=== PATIENT | male | born 1960 | race Caucasian/White ===

== ENCOUNTER 2018-06-18 16:53 | Emergency (ER) | payer MEDICAID ==
[~2018-06-18] VITALS: Ht 167.6 cm; Wt 71.4 kg
[2018-06-18] MEDS ORDERED: TESTOSTERONE IM (17:05)
[2018-06-18] MEDS ORDERED: [UNRECOGNIZED DRUG - CODE] PO (17:05)
[2018-06-18] MEDS ORDERED: [UNRECOGNIZED DRUG - OTHER] PO (17:05)
[2018-06-18 21:11] VITALS: BP 138/81
[2018-06-18 21:14] LABS: APPEARANCE,URINE CLEAR (CLEAR); BILIRUBIN,URINE NEGATIVE (NEGATIVE); GLUCOSE, URINE (UA) NEGATIVE (NEGATIVE); KETONES,URINE TRACE mg/dL (NEGATIVE); LEUKOCYTE ESTERASE ,URINE NEGATIVE (NEGATIVE); NITRATE,URINE NEGATIVE (NEGATIVE); OCCULT BLOOD,URINE NEGATIVE (NEGATIVE); PROTEIN,URINE TRACE (NEGATIVE)
== END 2018-06-18 21:15 | disposition home or self-care (01) ==
LOC: EMS 16:56
DX: N41.9 Inflammatory disease of prostate, unspecified (principal); R59.1 Generalized enlarged lymph nodes; F15.10 Other stimulant abuse, uncomplicated; F17.210 Nicotine dependence, cigarettes, uncomplicated; F31.9 Bipolar disorder, unspecified; Z79.899 Other long term (current) drug therapy

== ENCOUNTER 2018-09-20 18:03 | Emergency (ER) | payer MEDICAID ==
[~2018-09-20] VITALS: Ht 167.6 cm; Wt 70.5 kg
[~2018-09-20 18:03] MED LIST: TESTOSTERONE IM; [UNRECOGNIZED DRUG - CODE] PO; [UNRECOGNIZED DRUG - OTHER] PO
[2018-09-20 19:51] LABS: BASOPHILS % (AUTO) 0.9 % (0.0-2.0); EOSINOPHILS % (AUTO) 0.6 % (1.0-6.0); HEMATOCRIT 37.3 % (41-53); HEMOGLOBIN 12.2 g/dL (13.5-17.5); LYMPHOCYTES # (AUTO) 2.8 K/uL (1.0-4.8); LYMPHOCYTES % (AUTO) 24.8 % (22.0-44.0); MEAN CORPUSCULAR HEMOGLOBIN 24.5 pg (26.0-34.0); MEAN CORPUSCULAR HGB CONC 32.7 G/dL (31.0-37.0); MEAN CORPUSCULAR VOLUME 75 fL (80-100); MONOCYTES # (AUTO) 1.3 K/uL (0.1-1.0); MONOCYTES % (AUTO) 11.8 % (2.0-9.0); NEUTROPHILS # (AUTO) 6.9 K/uL (1.8-7.7); NEUTROPHILS % (AUTO) 61.9 % (40.0-70.0); PLATELET COUNT (AUTO) 318 K/uL (150-450); RED BLOOD CELL COUNT(AUTO) 4.96 MIL/uL (4.50-5.90); RED CELL DISTRIBUTION WIDTH 18.3 % (11.5-14.5)
[2018-09-20 20:02] LABS: AMPHET/METH SCREEN,URINE POSITIVE (NEGATIVE); BARBITURATE SCREEN, URINE NEGATIVE (NEGATIVE); BENZODIAZEPINES SCREEN,URINE NEGATIVE (NEGATIVE); CANNABINOID SCREEN,URINE POSITIVE (NEGATIVE); COCAINE SCREEN,URINE NEGATIVE (NEGATIVE); METHADONE SCREEN, URINE NEGATIVE (NEGATIVE); OPIATE SCREEN,URINE NEGATIVE (NEGATIVE); PHENCYCLIDINE SCREEN,URINE NEGATIVE (NEGATIVE)
[2018-09-20 20:03] LABS: ANION GAP 9 mmol/L (8-16); CALCIUM, TOTAL 9.1 mg/dL (8.8-10.5); CARBON DIOXIDE 28 mmol/L (22-29); CHLORIDE 97 mmol/L (98-107); CREATININE 0.97 mg/dL (0.60-1.30); GLOMERULAR FILTR. RATE CALC > 60 mL/min (>60); GLUCOSE,RANDOM 142 mg/dL (70-110); POTASSIUM 3.6 mmol/L (3.5-5.1); SODIUM SERUM 134 mmol/L (136-145); UREA NITROGEN, BLOOD 20 mg/dL (7-18)
[2018-09-20 20:04] LABS: APPEARANCE,URINE CLOUDY (CLEAR); BILIRUBIN,URINE NEGATIVE (NEGATIVE); GLUCOSE, URINE (UA) NEGATIVE (NEGATIVE); KETONES,URINE NEGATIVE (NEGATIVE); LEUKOCYTE ESTERASE ,URINE SMALL (NEGATIVE); NITRATE,URINE NEGATIVE (NEGATIVE); OCCULT BLOOD,URINE NEGATIVE (NEGATIVE); PH,URINE 6.5 (5.0-8.0); PROTEIN,URINE NEGATIVE (NEGATIVE)
[2018-09-20 20:12] LABS: BACTERIA,URINE Few /HPF (None Seen); RBC,URINE 0-2 /HPF (0-2); SQUAMOUS EPITHELIAL CELL,UR Few /LPF (None Seen)
[2018-09-20 20:13] LABS: PLATELET MORPHOLOGY COMMENT NORMAL
[2018-09-20] MEDS ORDERED: LORazepam 1 MG TABLET PO ONE (20:15)
[2018-09-20 20:17] LABS: B-TYPE NATRIURETIC PEPTIDE 68 pg/mL (0-100)
[2018-09-20 20:29] LABS: ALANINE AMINOTRANSFERASE 85 U/L (12-78); ALBUMIN 3.8 g/dL (3.4-5.0); ALKALINE PHOSPHATASE 181 U/L (46-116); ASPARTATE AMINOTRANSFERASE 153 U/L (15-37); BILIRUBIN,TOTAL 1.2 mg/dL (0.1-1.0); CREATINE KINASE, TOTAL ONLY 2233 U/L (39-308); TOTAL PROTEIN, SERUM 8.1 g/dL (6.4-8.2)
[2018-09-20] MEDS ORDERED: TAMSULOSIN HCL 0.4 MG CAPSULE PO ONE (20:45)
[2018-09-20] MEDS ORDERED: SODIUM CHLORIDE 0.9% 1,000 ML IV ONE ×2 (20:45)
[2018-09-20 21:58] VITALS: BP 119/82
[2018-09-20] MEDS ORDERED: CefTRIAXone 1 GM/DEXTROSE 50 ML IV ONE (22:00)
== END 2018-09-20 23:01 | disposition home or self-care (01) ==
LOC: EMS 18:04
DX: N39.0 Urinary tract infection, site not specified (principal); M62.82 Rhabdomyolysis; F31.9 Bipolar disorder, unspecified; F41.9 Anxiety disorder, unspecified; F17.210 Nicotine dependence, cigarettes, uncomplicated; Z79.899 Other long term (current) drug therapy
CPT/HCPCS: 36415; 71045; 80053; 80307; 81001; 82550; 83880; 84484; 85025; 87086; 93005; 96365; 99285; J0696; J7030

== ENCOUNTER 2018-09-21 17:12 | Emergency (ER) | payer MEDICAID ==
[~2018-09-21] VITALS: Ht 162.6 cm; Wt 70.0 kg
[2018-09-21 17:44] LABS: GLUCOSE,POINT OF CARE 88 MG/DL (70-110)
[2018-09-21] MEDS ORDERED: HALOPERIDOL 5 MG TABLET PO ONE (18:00)
[2018-09-21] MEDS ORDERED: SODIUM CHLORIDE 0.9% 1,000 ML IV ONE (18:00)
[2018-09-21] MEDS ORDERED: LORazepam 2 MG/ML VIAL IVP ONE (18:00)
[2018-09-21 18:16] LABS: BASOPHILS % (AUTO) 0.8 % (0.0-2.0); EOSINOPHILS % (AUTO) 0.8 % (1.0-6.0); HEMATOCRIT 32.6 % (41-53); HEMOGLOBIN 10.8 g/dL (13.5-17.5); LYMPHOCYTES # (AUTO) 1.8 K/uL (1.0-4.8); LYMPHOCYTES % (AUTO) 21.3 % (22.0-44.0); MEAN CORPUSCULAR HEMOGLOBIN 24.6 pg (26.0-34.0); MEAN CORPUSCULAR HGB CONC 33.1 G/dL (31.0-37.0); MEAN CORPUSCULAR VOLUME 74 fL (80-100); MONOCYTES # (AUTO) 0.9 K/uL (0.1-1.0); MONOCYTES % (AUTO) 10.4 % (2.0-9.0); NEUTROPHILS # (AUTO) 5.8 K/uL (1.8-7.7); NEUTROPHILS % (AUTO) 66.7 % (40.0-70.0); PLATELET COUNT (AUTO) 265 K/uL (150-450); RED BLOOD CELL COUNT(AUTO) 4.38 MIL/uL (4.50-5.90); RED CELL DISTRIBUTION WIDTH 17.9 % (11.5-14.5)
[2018-09-21 18:53] LABS: ANION GAP 13 mmol/L (8-16); CALCIUM, TOTAL 8.6 mg/dL (8.8-10.5); CARBON DIOXIDE 22 mmol/L (22-29); CHLORIDE 103 mmol/L (98-107); CREATININE 0.89 mg/dL (0.60-1.30); GLOMERULAR FILTR. RATE CALC > 60 mL/min (>60); GLUCOSE,RANDOM 88 mg/dL (70-110); POTASSIUM 3.6 mmol/L (3.5-5.1); SODIUM SERUM 138 mmol/L (136-145); UREA NITROGEN, BLOOD 14 mg/dL (7-18)
[2018-09-21 19:19] LABS: CREATINE KINASE, TOTAL ONLY 1038 U/L (39-308)
[2018-09-22 01:05] VITALS: BP 104/71
== END 2018-09-22 01:51 | disposition home or self-care (01) ==
LOC: EMS 17:13
DX: R45.1 Restlessness and agitation (principal); R46.1 Bizarre personal appearance; F15.10 Other stimulant abuse, uncomplicated; F31.9 Bipolar disorder, unspecified; F17.210 Nicotine dependence, cigarettes, uncomplicated
CPT/HCPCS: 36415; 80048; 82550; 82962; 85025; 96374; 99285; G0480; J2060; J7030; 96361

== ENCOUNTER 2018-09-22 10:23 | Emergency (ER) | payer MEDICAID ==
[~2018-09-22] VITALS: Ht 167.6 cm; Wt 72.7 kg
[2018-09-22 13:22] VITALS: BP 129/83
== END 2018-09-22 13:26 | disposition home or self-care (01) ==
LOC: EMS 10:28
DX: F15.10 Other stimulant abuse, uncomplicated (principal); F10.20 Alcohol dependence, uncomplicated; R03.0 Elevated blood-pressure reading, without diagnosis of hypertension; F32.9 Major depressive disorder, single episode, unspecified; F17.210 Nicotine dependence, cigarettes, uncomplicated; Z76.0 Encounter for issue of repeat prescription; Z79.899 Other long term (current) drug therapy

== ENCOUNTER 2018-09-25 20:18 | Emergency (ER) | payer MEDICAID ==
[~2018-09-25] VITALS: Ht 167.6 cm; Wt 68.2 kg
[~2018-09-25 20:18] MED LIST changes: -TESTOSTERONE IM; -[UNRECOGNIZED DRUG - OTHER] PO
[2018-09-25 20:45] VITALS: BP 118/79
[2018-09-25] MEDS ORDERED: LITH300T4 PO (20:54)
[2018-09-25] MEDS ORDERED: QUET25TA PO (20:54)
[2018-09-25] MEDS ORDERED: SERT50TA12 PO (20:54)
[2018-09-25 21:28] LABS: AMPHET/METH SCREEN,URINE POSITIVE (NEGATIVE); BARBITURATE SCREEN, URINE NEGATIVE (NEGATIVE); BENZODIAZEPINES SCREEN,URINE POSITIVE (NEGATIVE); CANNABINOID SCREEN,URINE NEGATIVE (NEGATIVE); COCAINE SCREEN,URINE NEGATIVE (NEGATIVE); METHADONE SCREEN, URINE NEGATIVE (NEGATIVE); OPIATE SCREEN,URINE NEGATIVE (NEGATIVE)
[2018-09-25 21:30] LABS: PHENCYCLIDINE SCREEN,URINE NEGATIVE (NEGATIVE)
== END 2018-09-26 00:30 | disposition left against medical advice (07) ==
LOC: EMS 20:18
DX: R45.851 Suicidal ideations (principal); F41.9 Anxiety disorder, unspecified; F20.9 Schizophrenia, unspecified; F31.9 Bipolar disorder, unspecified; F17.210 Nicotine dependence, cigarettes, uncomplicated; F19.90 Other psychoactive substance use, unspecified, uncomplicated; Z53.21 Procedure and treatment not carried out due to patient leaving prior to being seen by health care provider

== ENCOUNTER 2018-09-26 10:51 | Inpatient (IN) | payer MEDICAID ==
[~2018-09-26] VITALS: Ht 167.6 cm; Wt 69.5 kg
[~2018-09-26 10:51] MED LIST changes: +LITH300T4 PO; +QUET25TA PO; +SERT50TA12 PO; -[UNRECOGNIZED DRUG - CODE] PO
[2018-09-26 12:15] LABS: BASOPHILS % (AUTO) 0.8 % (0.0-2.0); EOSINOPHILS % (AUTO) 1.8 % (1.0-6.0); HEMATOCRIT 38.4 % (41-53); HEMOGLOBIN 12.5 g/dL (13.5-17.5); LYMPHOCYTES # (AUTO) 2.2 K/uL (1.0-4.8); LYMPHOCYTES % (AUTO) 30.1 % (22.0-44.0); MEAN CORPUSCULAR HEMOGLOBIN 24.9 pg (26.0-34.0); MEAN CORPUSCULAR HGB CONC 32.5 G/dL (31.0-37.0); MEAN CORPUSCULAR VOLUME 77 fL (80-100); MONOCYTES # (AUTO) 0.8 K/uL (0.1-1.0); MONOCYTES % (AUTO) 11.5 % (2.0-9.0); NEUTROPHILS # (AUTO) 4.1 K/uL (1.8-7.7); NEUTROPHILS % (AUTO) 55.8 % (40.0-70.0); PLATELET COUNT (AUTO) 255 K/uL (150-450); RED BLOOD CELL COUNT(AUTO) 5.01 MIL/uL (4.50-5.90); RED CELL DISTRIBUTION WIDTH 18.5 % (11.5-14.5)
[2018-09-26 12:32] LABS: ANION GAP 6 mmol/L (8-16); CALCIUM, TOTAL 8.9 mg/dL (8.8-10.5); CARBON DIOXIDE 28 mmol/L (22-29); CHLORIDE 100 mmol/L (98-107); CREATININE 0.91 mg/dL (0.60-1.30); GLOMERULAR FILTR. RATE CALC > 60 mL/min (>60); GLUCOSE,RANDOM 84 mg/dL (70-110); POTASSIUM 4.3 mmol/L (3.5-5.1); SODIUM SERUM 134 mmol/L (136-145); UREA NITROGEN, BLOOD 16 mg/dL (7-18)
[2018-09-26 12:35] LABS: ALANINE AMINOTRANSFERASE 59 U/L (12-78); ALBUMIN 3.1 g/dL (3.4-5.0); ALKALINE PHOSPHATASE 139 U/L (46-116); ASPARTATE AMINOTRANSFERASE 53 U/L (15-37); BILIRUBIN,TOTAL 0.3 mg/dL (0.1-1.0); CREATINE KINASE, TOTAL ONLY 50 U/L (39-308); TOTAL PROTEIN, SERUM 7.3 g/dL (6.4-8.2)
[2018-09-26 12:36] LABS: ACETAMINOPHEN < 2 mcg/mL (10-30)
[2018-09-26 12:38] LABS: SALICYLATE 2.8 mg/dL (2.8-20.0)
[2018-09-26] MEDS ORDERED: HALOPERIDOL LACTATE 5 MG/ML VIAL ONE (12:52)
[2018-09-26] MEDS ORDERED: LORazepam 2 MG/ML VIAL ONE (12:52)
[2018-09-26] MEDS ORDERED: HALOPERIDOL LACTATE 5 MG/ML VIAL IM ONE (13:00)
[2018-09-26] MEDS ORDERED: LORazepam 2 MG/ML VIAL IM ONE (13:00)
[2018-09-26 13:32] LABS: AMPHET/METH SCREEN,URINE NEGATIVE (NEGATIVE); BARBITURATE SCREEN, URINE NEGATIVE (NEGATIVE); BENZODIAZEPINES SCREEN,URINE POSITIVE (NEGATIVE); CANNABINOID SCREEN,URINE NEGATIVE (NEGATIVE); COCAINE SCREEN,URINE NEGATIVE (NEGATIVE); METHADONE SCREEN, URINE NEGATIVE (NEGATIVE); OPIATE SCREEN,URINE NEGATIVE (NEGATIVE); PHENCYCLIDINE SCREEN,URINE NEGATIVE (NEGATIVE)
[2018-09-26 16:56] VITALS: BP 135/89
[2018-09-26] MEDS ORDERED: LOPERAMIDE HCL 2 MG CAPSULE PO PRN (21:45)
[2018-09-26] MEDS ORDERED: NICOTINE 14 MG/24 HOUR PATCH TD PRN (21:45)
[2018-09-26] MEDS ORDERED: ACETAMINOPHEN 325 MG TABLET PO PRN (21:45)
[2018-09-26] MEDS ORDERED: MAGNESIUM HYDROXIDE SUSPENSION 30 ML UDCUP PO PRN (21:45)
[2018-09-26] MEDS ORDERED: IBUPROFEN 400 MG TABLET PO PRN (21:45)
[2018-09-26] MEDS ORDERED: MAG HYDROX/AL HYDROX/SIMETH ES 30 ML SUSPENSION UDCUP PO PRN (21:45)
[2018-09-26] MEDS ORDERED: DOCUSATE SODIUM 100 MG CAPSULE PO PRN (21:45)
[2018-09-26] MEDS ORDERED: PETROLATUM,WHITE 71 GM JELLY TP PRN (21:45)
[2018-09-27 05:32] VITALS: BP 133/82
[2018-09-27 08:42] VITALS: BP 101/63
[2018-09-27 09:14] LABS: CHOL/HDL RATIO 5.3 (4.2-7.3)
[2018-09-27] MEDS: FERROUS SULFATE 325 MG EC TABLET PO SCH (16:06)
[2018-09-27 16:45] VITALS: BP 105/58
[2018-09-27] MEDS: LITHIUM CARBONATE 300 MG CAPSULE PO SCH (20:03)
[2018-09-27] MEDS: ZOLPIDEM TARTRATE 10 MG TABLET PO PRN (20:03)
[2018-09-28] MEDS: FERROUS SULFATE 325 MG EC TABLET PO SCH ×2 (06:45→17:38)
[2018-09-28 07:22] VITALS: BP 110/68
[2018-09-28 08:30] VITALS: BP 101/74
[2018-09-28] MEDS: QUEtiapine FUMARATE 25 MG TABLET PO SCH ×2 (08:31→17:38)
[2018-09-28] MEDS: SERTRALINE HCL 50 MG TABLET PO SCH (08:32)
[2018-09-28 16:15] VITALS: BP 110/75
[2018-09-28] MEDS: LITHIUM CARBONATE 300 MG CAPSULE PO SCH (20:38)
[2018-09-29 02:52] VITALS: BP 114/69
[2018-09-29] MEDS: FERROUS SULFATE 325 MG EC TABLET PO SCH ×2 (06:46→16:13)
[2018-09-29 08:55] VITALS: BP 115/60
[2018-09-29] MEDS: SERTRALINE HCL 50 MG TABLET PO SCH (09:53)
[2018-09-29] MEDS: QUEtiapine FUMARATE 25 MG TABLET PO SCH ×2 (09:53→16:13)
[2018-09-29] MEDS: LORazepam 2 MG TABLET PO PRN (16:13)
[2018-09-29 16:22] VITALS: BP 106/68
[2018-09-29] MEDS: LITHIUM CARBONATE 300 MG CAPSULE PO SCH (20:52)
[2018-09-30 06:16] VITALS: BP 109/73
[2018-09-30] MEDS: FERROUS SULFATE 325 MG EC TABLET PO SCH ×2 (06:53→16:50)
[2018-09-30] MEDS: SERTRALINE HCL 50 MG TABLET PO SCH (09:03)
[2018-09-30] MEDS: QUEtiapine FUMARATE 25 MG TABLET PO SCH ×2 (09:04→16:50)
[2018-09-30 09:17] VITALS: BP 123/60
[2018-09-30] MEDS: LORazepam 2 MG TABLET PO PRN (15:03)
[2018-09-30 16:10] VITALS: BP 112/63
[2018-09-30] MEDS: LITHIUM CARBONATE 300 MG CAPSULE PO SCH (20:29)
[2018-10-01 02:33] VITALS: BP 117/72
[2018-10-01] MEDS: FERROUS SULFATE 325 MG EC TABLET PO SCH ×2 (06:42→16:56)
[2018-10-01 08:07] LABS: ANION GAP 5 mmol/L (8-16); CALCIUM, TOTAL 8.9 mg/dL (8.8-10.5); CARBON DIOXIDE 30 mmol/L (22-29); CHLORIDE 101 mmol/L (98-107); CREATININE 0.75 mg/dL (0.60-1.30); GLOMERULAR FILTR. RATE CALC > 60 mL/min (>60); GLUCOSE,RANDOM 81 mg/dL (70-110); POTASSIUM 4.8 mmol/L (3.5-5.1); SODIUM SERUM 136 mmol/L (136-145); UREA NITROGEN, BLOOD 16 mg/dL (7-18)
[2018-10-01] MEDS: QUEtiapine FUMARATE 25 MG TABLET PO SCH ×2 (08:50→16:56)
[2018-10-01] MEDS: SERTRALINE HCL 50 MG TABLET PO SCH (08:50)
[2018-10-01 19:29] VITALS: BP 123/75
[2018-10-01] MEDS: LITHIUM CARBONATE 300 MG CAPSULE PO SCH (20:23)
[2018-10-01] MEDS: HALOPERIDOL 5 MG TABLET PO PRN (20:23)
[2018-10-01] MEDS: ZOLPIDEM TARTRATE 10 MG TABLET PO PRN (20:40)
[2018-10-02 01:20] VITALS: BP 121/69
[2018-10-02] MEDS: FERROUS SULFATE 325 MG EC TABLET PO SCH ×2 (06:48→16:39)
[2018-10-02 08:24] VITALS: BP 108/68
[2018-10-02] MEDS: QUEtiapine FUMARATE 25 MG TABLET PO SCH ×2 (09:42→16:39)
[2018-10-02] MEDS: SERTRALINE HCL 50 MG TABLET PO SCH (09:42)
[2018-10-02 16:17] VITALS: BP 112/53
[2018-10-02] MEDS: HALOPERIDOL 5 MG TABLET PO PRN (16:39)
[2018-10-02] MEDS: LITHIUM CARBONATE 300 MG CAPSULE PO SCH (20:15)
[2018-10-02] MEDS: ZOLPIDEM TARTRATE 10 MG TABLET PO PRN (20:26)
[2018-10-03] MEDS: FERROUS SULFATE 325 MG EC TABLET PO SCH ×2 (06:51→16:07)
[2018-10-03 06:53] VITALS: BP_SYST 110; BP_SYST 120; BP_DIAS 68; BP_DIAS 73
[2018-10-03 08:00] VITALS: BP 101/58
[2018-10-03 09:07] VITALS: BP 115/68
[2018-10-03] MEDS: SERTRALINE HCL 50 MG TABLET PO SCH (09:49)
[2018-10-03] MEDS: QUEtiapine FUMARATE 25 MG TABLET PO SCH ×2 (09:49→16:07)
[2018-10-03 16:38] VITALS: BP 117/70
[2018-10-03] MEDS: LITHIUM CARBONATE 300 MG CAPSULE PO SCH (20:16)
[2018-10-04] MEDS: FERROUS SULFATE 325 MG EC TABLET PO SCH ×2 (06:43→16:47)
[2018-10-04 06:45] VITALS: BP 115/76
[2018-10-04 08:26] VITALS: BP 111/57
[2018-10-04] MEDS: QUEtiapine FUMARATE 25 MG TABLET PO SCH ×2 (08:41→16:48)
[2018-10-04] MEDS: SERTRALINE HCL 50 MG TABLET PO SCH (08:42)
[2018-10-04 09:18] VITALS: BP 112/64
[2018-10-04] MEDS: LITHIUM CARBONATE 300 MG CAPSULE PO SCH (20:26)
[2018-10-05 05:36] VITALS: BP 113/65
[2018-10-05] MEDS: FERROUS SULFATE 325 MG EC TABLET PO SCH ×2 (07:02→16:52)
[2018-10-05 08:30] VITALS: BP 103/70
[2018-10-05] MEDS: SERTRALINE HCL 50 MG TABLET PO SCH (09:29)
[2018-10-05] MEDS: QUEtiapine FUMARATE 25 MG TABLET PO SCH ×2 (09:29→16:52)
[2018-10-05 17:20] VITALS: BP 116/73
[2018-10-05] MEDS: LITHIUM CARBONATE 300 MG CAPSULE PO SCH (20:50)
[2018-10-06 06:15] VITALS: BP 114/75
[2018-10-06] MEDS: FERROUS SULFATE 325 MG EC TABLET PO SCH (06:27)
[2018-10-06] MEDS: SERTRALINE HCL 50 MG TABLET PO SCH (08:56)
[2018-10-06] MEDS: QUEtiapine FUMARATE 25 MG TABLET PO SCH (08:57)
== END 2018-10-06 13:20 | disposition home or self-care (01) | DRG 750 ==
LOC: EMS 10:52 → B2S 15:27 → UNDODISIN 10-05 12:15
PROVIDERS: ADMIT Psychiatry & Neurology Psychiatry; ATTEND Psychiatry & Neurology Psychiatry
DX: F25.1 Schizoaffective disorder, depressive type (principal); R45.851 Suicidal ideations; E87.1 Hypo-osmolality and hyponatremia; K75.9 Inflammatory liver disease, unspecified; E78.5 Hyperlipidemia, unspecified; F15.90 Other stimulant use, unspecified, uncomplicated; F41.9 Anxiety disorder, unspecified; F10.10 Alcohol abuse, uncomplicated; Y90.9 Presence of alcohol in blood, level not specified; F19.10 Other psychoactive substance abuse, uncomplicated; F17.210 Nicotine dependence, cigarettes, uncomplicated; Z79.899 Other long term (current) drug therapy; G47.00 Insomnia, unspecified; D64.9 Anemia, unspecified
CPT/HCPCS: 84295; 93005; G0480; G0481; J1630; J2060

== ENCOUNTER 2018-10-21 21:47 | Emergency (ER) | payer MEDICAID ==
[~2018-10-21] VITALS: Ht 167.6 cm; Wt 75.0 kg
[2018-10-21 22:27] VITALS: BP 130/76
== END 2018-10-21 22:50 | disposition home or self-care (01) ==
LOC: EMS 21:55
DX: Z02.89 Encounter for other administrative examinations (principal); S60.511A Abrasion of right hand, initial encounter; S60.512A Abrasion of left hand, initial encounter; F31.9 Bipolar disorder, unspecified; F41.9 Anxiety disorder, unspecified; F20.9 Schizophrenia, unspecified; F17.210 Nicotine dependence, cigarettes, uncomplicated; F15.10 Other stimulant abuse, uncomplicated; X58.XXXA Exposure to other specified factors, initial encounter; Y93.89 Activity, other specified; Y92.89 Other specified places as the place of occurrence of the external cause; Y99.8 Other external cause status

== ENCOUNTER 2019-10-03 07:24 | Inpatient (IN) | payer MEDICAID ==
[~2019-10-03] VITALS: Ht 167.6 cm; Wt 65.3 kg
[~2019-10-03 07:24] MED LIST changes: +BICT1TAB PO; +CITA-106 PO
[2019-10-03 08:40] LABS: BASOPHILS % (AUTO) 0.9 % (0.0-2.0); EOSINOPHILS % (AUTO) 0.4 % (1.0-6.0); HEMATOCRIT 38.8 % (41-53); LYMPHOCYTES # (AUTO) 2.1 K/uL (1.0-4.8); LYMPHOCYTES % (AUTO) 23.5 % (22.0-44.0); MEAN CORPUSCULAR HEMOGLOBIN 26.2 pg (26.0-34.0); MEAN CORPUSCULAR HGB CONC 33.5 G/dL (31.0-37.0); MEAN CORPUSCULAR VOLUME 78 fL (80-100); MONOCYTES # (AUTO) 0.8 K/uL (0.1-1.0); MONOCYTES % (AUTO) 8.6 % (2.0-9.0); NEUTROPHILS % (AUTO) 66.6 % (40.0-70.0); PLATELET COUNT (AUTO) 300 K/uL (150-450); RED BLOOD CELL COUNT(AUTO) 4.97 MIL/uL (4.50-5.90); RED CELL DISTRIBUTION WIDTH 15.7 % (11.5-14.5)
[2019-10-03 08:51] LABS: ANION GAP 11 mmol/L (8-16); CALCIUM, TOTAL 9.4 mg/dL (8.8-10.5); CARBON DIOXIDE 25 mmol/L (22-29); CHLORIDE 105 mmol/L (98-107); CREATININE 1.26 mg/dL (0.60-1.30); GLOMERULAR FILTR. RATE CALC 59 mL/min (>60); GLUCOSE,RANDOM 103 mg/dL (70-110); POTASSIUM 4.1 mmol/L (3.5-5.1); SODIUM SERUM 141 mmol/L (136-145); UREA NITROGEN, BLOOD 20 mg/dL (7-18)
[2019-10-03 08:56] LABS: ALANINE AMINOTRANSFERASE 52 U/L (12-78); ALBUMIN 3.9 g/dL (3.4-5.0); ALKALINE PHOSPHATASE 150 U/L (46-116); ASPARTATE AMINOTRANSFERASE 60 U/L (15-37); BILIRUBIN,TOTAL 0.6 mg/dL (0.1-1.0); TOTAL PROTEIN, SERUM 8.2 g/dL (6.4-8.2)
[2019-10-03 09:01] LABS: AMPHET/METH SCREEN,URINE POSITIVE (NEGATIVE); BARBITURATE SCREEN, URINE NEGATIVE (NEGATIVE); BENZODIAZEPINES SCREEN,URINE POSITIVE (NEGATIVE); CANNABINOID SCREEN,URINE POSITIVE (NEGATIVE); COCAINE SCREEN,URINE NEGATIVE (NEGATIVE); METHADONE SCREEN, URINE NEGATIVE (NEGATIVE); OPIATE SCREEN,URINE NEGATIVE (NEGATIVE); PHENCYCLIDINE SCREEN,URINE NEGATIVE (NEGATIVE)
[2019-10-03] MEDS ORDERED: LORazepam 2 MG TABLET PO ONE (13:15)
[2019-10-04 03:38] VITALS: BP 135/78
[2019-10-04] MEDS ORDERED: MAGNESIUM HYDROXIDE SUSPENSION 30 ML UDCUP PO PRN (06:00)
[2019-10-04] MEDS ORDERED: MAG HYDROX/AL HYDROX/SIMETH ES 30 ML SUSPENSION UDCUP PO PRN (06:00)
[2019-10-04] MEDS ORDERED: ACETAMINOPHEN 325 MG TABLET PO PRN (06:00)
[2019-10-04] MEDS ORDERED: OMEPRAZOLE 20 MG CAPSULE PO PRN (06:00)
[2019-10-04] MEDS ORDERED: DOCUSATE SODIUM 100 MG CAPSULE PO PRN (06:00)
[2019-10-04] MEDS ORDERED: BACITRACIN 28.4 GM OINTMENT TP PRN (06:00)
[2019-10-04] MEDS ORDERED: ALBUTEROL SULFATE HFA 90 MCG/PUFF 8 GM INHALER IH PRN (06:00)
[2019-10-04] MEDS ORDERED: BENZOCAINE/MENTHOL LOZENGE MM PRN (06:00)
[2019-10-04] MEDS ORDERED: LOPERAMIDE HCL 2 MG CAPSULE PO PRN (06:00)
[2019-10-04] MEDS ORDERED: CloNIDine HCL 0.1 MG TABLET PO PRN (06:00)
[2019-10-04] MEDS ORDERED: ONDANSETRON HCL 4 MG TABLET PO PRN (06:00)
[2019-10-04] MEDS ORDERED: PETROLATUM,WHITE 28 GM JELLY TP PRN (06:00)
[2019-10-04 08:36] VITALS: BP 115/82
[2019-10-04] MEDS: HALOPERIDOL 5 MG TABLET PO PRN (09:37)
[2019-10-04] MEDS: LORazepam 2 MG TABLET PO PRN (09:37)
[2019-10-04 16:52] VITALS: BP 110/61
[2019-10-04] MEDS: QUEtiapine FUMARATE 200 MG TABLET PO SCH (20:51)
[2019-10-05 06:38] VITALS: BP 101/60
[2019-10-05 08:45] VITALS: BP 96/68
[2019-10-05] MEDS: LITHIUM CARBONATE 300 MG CAPSULE PO SCH ×2 (09:33→16:42)
[2019-10-05] MEDS: SERTRALINE HCL 100 MG TABLET PO SCH (09:33)
[2019-10-05 17:35] VITALS: BP 112/77
[2019-10-05 19:45] VITALS: BP 112/77
[2019-10-05] MEDS: IBUPROFEN 600 MG TABLET PO PRN (19:57)
[2019-10-05] MEDS: QUEtiapine FUMARATE 200 MG TABLET PO SCH (20:45)
[2019-10-06 09:04] VITALS: BP 103/56
[2019-10-06] MEDS: LITHIUM CARBONATE 300 MG CAPSULE PO SCH ×2 (09:19→17:34)
[2019-10-06] MEDS: SERTRALINE HCL 100 MG TABLET PO SCH (09:19)
[2019-10-06 16:48] VITALS: BP 115/75
[2019-10-06] MEDS: IBUPROFEN 600 MG TABLET PO PRN (20:22)
[2019-10-06] MEDS: QUEtiapine FUMARATE 200 MG TABLET PO SCH (20:22)
[2019-10-06] MEDS: ZOLPIDEM TARTRATE 10 MG TABLET PO PRN (20:22)
[2019-10-07 07:00] LABS: BASOPHILS % (AUTO) 0.9 % (0.0-2.0); EOSINOPHILS % (AUTO) 2.4 % (1.0-6.0); HEMOGLOBIN 13.8 g/dL (13.5-17.5); LYMPHOCYTES # (AUTO) 2.8 K/uL (1.0-4.8); LYMPHOCYTES % (AUTO) 35.2 % (22.0-44.0); MEAN CORPUSCULAR HEMOGLOBIN 25.3 pg (26.0-34.0); MEAN CORPUSCULAR HGB CONC 32.1 G/dL (31.0-37.0); MEAN CORPUSCULAR VOLUME 79 fL (80-100); MONOCYTES # (AUTO) 0.7 K/uL (0.1-1.0); MONOCYTES % (AUTO) 9.6 % (2.0-9.0); NEUTROPHILS # (AUTO) 4.1 K/uL (1.8-7.7); NEUTROPHILS % (AUTO) 51.9 % (40.0-70.0); PLATELET COUNT (AUTO) 292 K/uL (150-450); RED BLOOD CELL COUNT(AUTO) 5.45 MIL/uL (4.50-5.90); RED CELL DISTRIBUTION WIDTH 16.4 % (11.5-14.5)
[2019-10-07 08:13] VITALS: BP 121/72
[2019-10-07] MEDS: LITHIUM CARBONATE 300 MG CAPSULE PO SCH ×2 (09:30→16:37)
[2019-10-07] MEDS: SERTRALINE HCL 100 MG TABLET PO SCH (09:30)
[2019-10-07 16:57] VITALS: BP 118/68
[2019-10-07] MEDS: ZOLPIDEM TARTRATE 10 MG TABLET PO PRN (18:58)
[2019-10-07] MEDS: QUEtiapine FUMARATE 200 MG TABLET PO SCH (20:12)
[2019-10-08] MEDS: SERTRALINE HCL 100 MG TABLET PO SCH (08:17)
[2019-10-08] MEDS: LITHIUM CARBONATE 300 MG CAPSULE PO SCH ×2 (08:17→16:00)
[2019-10-08 08:50] VITALS: BP 122/72
[2019-10-08 19:08] VITALS: BP 124/69
[2019-10-08] MEDS: QUEtiapine FUMARATE 200 MG TABLET PO SCH (20:10)
[2019-10-09] MEDS: SERTRALINE HCL 100 MG TABLET PO SCH (08:11)
[2019-10-09] MEDS: LITHIUM CARBONATE 300 MG CAPSULE PO SCH ×2 (08:11→16:02)
[2019-10-09 08:39] VITALS: BP 119/80
[2019-10-09 16:30] VITALS: BP 110/76
[2019-10-09] MEDS: QUEtiapine FUMARATE 200 MG TABLET PO SCH (20:10)
[2019-10-10] MEDS: SERTRALINE HCL 100 MG TABLET PO SCH (08:06)
[2019-10-10] MEDS: LITHIUM CARBONATE 300 MG CAPSULE PO SCH ×2 (08:06→16:16)
[2019-10-10 08:49] VITALS: BP 126/64
[2019-10-10] MEDS: HALOPERIDOL 5 MG TABLET PO PRN (14:25)
[2019-10-10] MEDS: LORazepam 2 MG TABLET PO PRN (14:25)
[2019-10-10 16:32] VITALS: BP 116/70
[2019-10-10] MEDS: QUEtiapine FUMARATE 200 MG TABLET PO SCH (20:25)
[2019-10-11] MEDS: SERTRALINE HCL 100 MG TABLET PO SCH (08:28)
[2019-10-11] MEDS: LITHIUM CARBONATE 300 MG CAPSULE PO SCH ×2 (08:28→16:13)
[2019-10-11 10:30] VITALS: BP 129/74
[2019-10-11 18:56] VITALS: BP 125/83
[2019-10-11] MEDS: QUEtiapine FUMARATE 200 MG TABLET PO SCH (20:02)
[2019-10-11] MEDS: LORazepam 2 MG TABLET PO PRN (20:02)
[2019-10-11] MEDS: HALOPERIDOL 5 MG TABLET PO PRN (20:03)
[2019-10-12] MEDS: SERTRALINE HCL 100 MG TABLET PO SCH (08:20)
[2019-10-12] MEDS: LITHIUM CARBONATE 300 MG CAPSULE PO SCH (08:20)
[2019-10-12 08:36] VITALS: BP 117/70
== END 2019-10-12 13:35 | disposition home or self-care (01) | DRG 885 ==
LOC: EMS 07:25 → UNDOADMIN 14:49 → B2S 14:49 → 3EI 16:45
PROVIDERS: ADMIT Psychiatry & Neurology Psychiatry; ATTEND Psychiatry & Neurology Psychiatry
DX: F25.9 Schizoaffective disorder, unspecified (principal); R45.851 Suicidal ideations; F15.10 Other stimulant abuse, uncomplicated; F31.9 Bipolar disorder, unspecified; F17.210 Nicotine dependence, cigarettes, uncomplicated; R33.9 Retention of urine, unspecified; G47.00 Insomnia, unspecified; K59.00 Constipation, unspecified
CPT/HCPCS: G0480

== ENCOUNTER 2019-10-03 19:23 | Emergency (ER) | payer MEDICAID ==
[~2019-10-03] VITALS: Ht 167.6 cm; Wt 68.2 kg
[2019-10-04 02:20] VITALS: BP 115/80
== END 2019-10-04 02:30 | disposition other institution (70) ==
LOC: EMS 19:26
DX: F20.9 Schizophrenia, unspecified (principal); F10.20 Alcohol dependence, uncomplicated; F41.9 Anxiety disorder, unspecified; F31.9 Bipolar disorder, unspecified; F17.210 Nicotine dependence, cigarettes, uncomplicated; F12.90 Cannabis use, unspecified, uncomplicated; F11.90 Opioid use, unspecified, uncomplicated; Z79.899 Other long term (current) drug therapy; Z98.890 Other specified postprocedural states